=== PATIENT | female | born 1975 | race Caucasian/White ===

== ENCOUNTER 2017-07-17 19:09 | Inpatient (IN) | payer OTHER ==
[~2017-07-17] VITALS: Ht 177.8 cm; Wt 109.1 kg
[2017-07-17 19:43] VITALS: Ht 177.8 cm; Wt 109.1 kg
[2017-07-17] MEDS ORDERED: PREN1TAB79 PO (19:43)
[2017-07-17 19:44] VITALS: BP 128/76; PULSE 71; RESP 18
[2017-07-17 20:29] LABS: BASOPHILS % 0.1 % (0.0-2.0); EOSINOPHILS # 0.1 10^3/ul (0.0-0.5); EOSINOPHILS % 0.5 % (0.0-7.0); HEMATOCRIT 33.7 % (37.0-47.0); HEMOGLOBIN 11.8 g/dl (12.0-16.0); LYMPHOCYTES % 19.3 % (15.0-51.0); MEAN CORPUSCULAR HEMOGLOBIN 33.2 pg (29.0-33.0); MEAN CORPUSCULAR VOLUME 94.9 fl (82.0-101.0); MEAN PLATELET VOLUME 12.5 fl (7.4-10.4); MONOCYTE # 0.5 10^3/ul (0.3-0.9); MONOCYTES % 5.2 % (0.0-11.0); NEUTROPHIL # 7.6 10^3/ul (1.6-7.5); NEUTROPHILS % 74.4 % (39.0-77.0); PLATELET COUNT 148 10^3/UL (140-415); RED BLOOD COUNT 3.55 10^6/ul (4.20-5.40); RED CELL DISTRIBUTION WIDTH 12.3 % (11.5-14.5); WHITE BLOOD COUNT 10.2 10^3/ul (4.8-10.8)
[2017-07-17 20:33] LABS: ADD UMIC YES; UR ASCORBIC ACID NEGATIVE (NEGATIVE); UR BACTERIA FEW /HPF (NONE SEEN); UR BILIRUBIN (Dip) NEGATIVE (NEGATIVE); UR BLOOD (Dip) NEGATIVE (NEGATIVE); UR CLARITY SLIGHTLY CLOUDY (CLEAR); UR COLOR YELLOW (YELLOW); UR GLUCOSE (Dip) NEGATIVE (NEGATIVE); UR KETONES (Dip) NEGATIVE (NEGATIVE); UR LEUKOCYTE ESTERASE (Dip) 3+ Leu/ul (NEGATIVE); UR MUCUS FEW /HPF (NONE SEEN); UR NITRITE (Dip) NEGATIVE (NEGATIVE); UR RBC 1 /HPF (0-5); UR SPECIFIC GRAVITY (Dip) 1.019 (1.003-1.030); UR SQUAMOUS EPITHELIAL CELL FEW /HPF (FEW); UR TOTAL PROTEIN (Dip) NEGATIVE (NEGATIVE); UR UROBILINOGEN (Dip) NEGATIVE (NEGATIVE)
--- NOTE | 2017-07-17 20:34 | RADRPT ---
PROCEDURE: Obstetrical ultrasound for biophysical profile CLINICAL INDICATION: Biophysical profile. . TECHNIQUE: Obstetrical ultrasound of the uterus for biophysical profile. Transabdominal views are obtained. COMPARISON: None FINDINGS: Single intrauterine gestation. Presentation: Cephalic. Placenta: Posterior - fundal No evidence of placental abruption. No evidence of placenta previa. breathing movement = 2/2 tone = 2/2 motion = 2/2 LEVI = 2/2 LEVI = 14 cm heart rate: 130 beats per minute IMPRESSION: Single intrauterine gestation. Biophysical profile 03/19 RPTAT: AADD .Eulogio Elkins MD, MD Date Time Electronically viewed and signed by .Eulogio Elkins MD, on 07/17/2017 20:34 .B/
[2017-07-17 20:47] LABS: ALBUMIN 3.1 g/dl (3.3-4.9); ALBUMIN/GLOBULIN RATIO 0.96; BILIRUBIN,INDIRECT 0.3 mg/dl (0-1.1); BILIRUBIN,TOTAL 0.3 mg/dl (0.2-1.3); CALCIUM 9.1 mg/dl (8.4-10.2); CREATININE 0.63 mg/dl (0.44-1.00); POTASSIUM 3.9 mmol/L (3.5-5.1); TOTAL PROTEIN 6.3 g/dl (6.1-8.1); URIC ACID 4.1 mg/dl (3.1-7.9)
[2017-07-17] MEDS ORDERED: ACETAMINOPHEN 325 MG TAB PO PRN (21:00)
[2017-07-17 21:11] LABS: INR 0.88; PT RATIO 0.9
[2017-07-17 21:27] LABS: GLUCOSE 77 mg/dl (70-220)
[2017-07-17] MEDS: LACTATED RINGER'S 1,000 ML IV SCH (22:05)
--- NOTE | 2017-07-18 01:00 | HP ---
Date/Time of Note Date/Time of Note DATE: 07/18/17 TIME: 00:55 OB - History Hx of Present Free Text/Dictation 07/17/2017 : 2 Para: 0 Spontaneous : 0 Therapeutic : 0 Obstetrical Complications: Other (History of Ectopic , History of infertility, s/p IVF x 6. conceived afterr last IVF spontaneously. ) Other Concerns: 41-year-old with at 38 weeks and 2 days, history of infertility , history of ectopic , status post 6 rounds of IVF, conceived spontaneously. She was noted to have elevated blood pressure in the office visit 148/87 and was sent to triage for further evaluation rule out PIH. She reports she has headache with right sided blurred vision. Denies any epigastric pain or right upper quadrant pain. Denies any leaking of fluid, vaginal bleeding or decreased movement. Patient was scheduled for primary section at 39 weeks. Past Family/Social History * Past Medical, Surgical, Family and Obstetric Histories reviewed from chart. OB Admission Exam Vital Signs Vital Signs Vital Signs Date Time Temp Pulse Resp B/P Pulse Ox O2 Delivery O2 Flow Rate FiO2 07/17/17 19:44 97.8 71 18 128/76 Room Air Physical Exam HEENT: WNL Heart: Rhythm Normal Lungs: Clear Abdomen: WNL Extremities: Normal Cervical Dilatation: None Effacement: 0% Membranes: Intact Heart Rate: 130's Accelerations: Accelerations Present Decelerations: No Decelerations Varibility: Moderate Contractions on Admission: >10 Minutes Apart Intensity: Mild Last 72 hours Lab Results CBC & BMP 07/17/17 20:16 Liver Function Test 07/17/17 20:16 Alanine Aminotransferase (ALT/SGPT) 29 Albumin 3.1 L Alkaline Phosphatase 153 H Aspartate Amino Transf (AST/SGOT) 18 Direct Bilirubin 0.00 Total Protein 6.3 OB Assessment/Plan Other Assessment: IUP at 38 weeks and 2 days Conceived spontaneously after 6 rounds of IVF History of ectopic in prior Mildly elevated blood pressure during office visit noted. Complaint of headache and right-sided scotoma Blood pressures during monitoring in triage had been in normal range Urine negative for protein Patient will be kept overnight for observation for monitoring serially blood pressure as well as PIH panel Consider magnesium sulfate if any evidence of preeclampsia Follow-up the PIH panel Closely monitor If any evidence of gestational hypertension or preeclampsia consider delivery Primary OB was informed who agrees with above plan BRAD OSMAN MD Jul 18, 2017 01:00
--- NOTE | 2017-07-18 02:33 | TRIAGE ---
OB Triage Datetime Report Generated by CPN: 07/18/2017 02:33 Datetime: 07/18/2017 02:00 Labor Evaluation Frequency: none Monitor Mode: External Resting Tone Biggers: Relaxed Heart Rate FHR Baseline Rate: 135 Monitor Mode: External US FHR Baseline Changes: No Baseline Change Variability: Moderate 6-25 bpm Accelerations: 15X15 Decelerations: Variable Category: Category II Datetime: 07/18/2017 01:00 Labor Evaluation Frequency: none Monitor Mode: External Resting Tone Biggers: Relaxed Heart Rate FHR Baseline Rate: 130 Monitor Mode: External US FHR Baseline Changes: No Baseline Change Variability: Moderate 6-25 bpm Accelerations: 15X15 Decelerations: Variable Category: Category II Datetime: 07/18/2017 00:00 Labor Evaluation Frequency: none Monitor Mode: External Resting Tone Biggers: Relaxed Heart Rate FHR Baseline Rate: 130 Monitor Mode: External US FHR Baseline Changes: No Baseline Change Variability: Moderate 6-25 bpm Accelerations: 15X15 Decelerations: None Category: Category I Datetime: 07/17/2017 23:52 Stage of : Antepartum Temperature Route: Oral Datetime: 07/17/2017 23:00 Labor Evaluation Frequency: none Monitor Mode: External Resting Tone Biggers: Relaxed Heart Rate FHR Baseline Rate: 125 Monitor Mode: External US FHR Baseline Changes: No Baseline Change Variability: Moderate 6-25 bpm Accelerations: 15X15 Decelerations: None Category: Category I Pain Assessment Pain Scale: 6 Pain Presence: Constant Pain Type: Ache Pain Location: Head Pain Goal: 0 Pain Assessment Comments: pt refused tylenol for headache. Datetime: 07/17/2017 22:20 Assessment Type: Admission Assessment Vaginal Bleeding: None Maternal Assessment Level of Consciousness: Fully Conscious DTR's/Clonus: DTRs 2+; No Clonus Headache: Occipital; Localized Blurred Vision: No Respiratory Effort: Unlabored; Regular Rhythm; Equal Expansion Breath Sounds, Left: Clear and Equal Breath Sounds, Right: Clear and Equal Nausea/Vomiting: Denies RUQ Epigastric Pain: Denies Lower Extremities Edema: Bilateral Lower Extremities Degree: 2+ Upper Extremities Edema: Bilateral Upper Extremities Degree: 1+ Facial Edema: None Fall Risk Assessment History of Falling: (0) No Secondary Diagnosis: (0) No Ambulatory Aid: (0) Bedrest/Nurse Assist IV Therapy: (20) Yes Gait: (0) Normal/Bedrest/Immobile Mental Status: (0) Oriented to Own Ability Fall Score: 20 Fall Risk Score Definition: No Risk: No action required Labor Evaluation Frequency: none Heart Rate FHR Baseline Rate: 120 Variability: Moderate 6-25 bpm Accelerations: 15X15 Decelerations: None Category: Category I Pain Assessment Pain Scale: 6 Pain Presence: Constant Pain Type: Ache Pain Location: Head Pain Goal: 0 Vaginal Exam Membrane Status: Intact Datetime: 07/17/2017 22:09 Stage of : OB Triage Stage of : Antepartum Labor Evaluation Frequency: None Monitor Mode: External Resting Tone Biggers: Relaxed Heart Rate FHR Baseline Rate: 130 Monitor Mode: External US FHR Baseline Changes: No Baseline Change Variability: Moderate 6-25 bpm Accelerations: 15X15 Decelerations: None Category: Category I Datetime: 07/17/2017 22:05 Stage of : OB Triage Datetime: 07/17/2017 22:00 Stage of : OB Triage Labor Evaluation Frequency: Irregular Monitor Mode: External Duration (sec)2399: 40-80 Quality: Mild Pattern: Normal: <= 5 Contractions in 10 Minutes Resting Tone Biggers: Relaxed Heart Rate FHR Baseline Rate: 130 Monitor Mode: External US FHR Baseline Changes: No Baseline Change Variability: Moderate 6-25 bpm Accelerations: 15X15 Decelerations: Variable Category: Category II Datetime: 07/17/2017 21:58 Stage of : OB Triage Datetime: 07/17/2017 21:00 Stage of : OB Triage Labor Evaluation Frequency: Occasional Monitor Mode: External Duration (sec)2399: 40-50 Quality: Mild Pattern: Normal: <= 5 Contractions in 10 Minutes Resting Tone Biggers: Relaxed Heart Rate FHR Baseline Rate: 130 Monitor Mode: External US FHR Baseline Changes: No Baseline Change Variability: Moderate 6-25 bpm Accelerations: 15X15 Decelerations: Variable Category: Category II Datetime: 07/17/2017 20:29 Stage of : OB Triage Datetime: 07/17/2017 20:00 Stage of : OB Triage Labor Evaluation Frequency: x3 Monitor Mode: External Duration (sec)2399: 60-80 Quality: Mild Pattern: Normal: <= 5 Contractions in 10 Minutes Resting Tone Biggers: Relaxed Heart Rate FHR Baseline Rate: 130 Monitor Mode: External US Variability: Moderate 6-25 bpm Accelerations: 15X15 Decelerations: None Category: Category I Datetime: 07/17/2017 19:59 Stage of : OB Triage Datetime: 07/17/2017 19:53 Stage of : OB Triage Datetime: 07/17/2017 19:14 Stage of : OB Triage Assessment Type: Triage Maternal Assessment Level of Consciousness: Fully Conscious DTR's/Clonus: DTRs 2+; No Clonus Headache: Temporal; Bilateral Blurred Vision: Yes (Annotations: Denies blurred vision but reports some spots in front of right e ye on way here) Respiratory Effort: Unlabored; Regular Rhythm; Equal Expansion Breath Sounds, Left: Clear and Equal Breath Sounds, Right: Clear and Equal Nausea/Vomiting: Present (Annotations: Nausea only) RUQ Epigastric Pain: Denies Lower Extremities Edema: Bilateral Lower Extremities Degree: Pitting Upper Extremities Edema: None Degree: None Facial Edema: None Temperature Route: Oral Fall Risk Assessment History of Falling: (0) No Secondary Diagnosis: (0) No Ambulatory Aid: (0) Bedrest/Nurse Assist IV Therapy: (0) No Gait: (0) Normal/Bedrest/Immobile Mental Status: (0) Oriented to Own Ability Fall Score: 0 Fall Risk Score Definition: No Risk: No action required Pain Assessment Pain Scale: 7 Pain Presence: Constant Pain Type: Ache Pain Location: Head Datetime: 07/17/2017 19:12 Contraction Comments: TOCO APPLIED Comments: US APPLIED Datetime: 07/17/2017 19:11 Time of Arrival: 07/17/2017 19:00 EGA: 38.2 Arrived By: Ambulatory Arrived From: Office Chief Complaint: BARAH[place], nausea Movement: Present Contractions: Denies/Absent Rupture of Membranes: Denies Vaginal Bleeding: None Vaginal Discharge: Denies Recent Sexual Intercouse: Denies Abdominal Trauma: Not Applicable Patient Complaints: Back Pain; Headache; Nausea Additional Patient Complaints: Sent from MD office for elevated BP _ BARAHONA Time Provider Notified: 07/17/2017 19:59 Provider Notified: Initial Plan: PIH panel, U/S for BPP/LEVI
[2017-07-18] MEDS: LACTATED RINGER'S 1,000 ML IV SCH ×3 (05:25→19:20)
[2017-07-18] MEDS ORDERED: OXYTOCIN 30 UNITS/LR 500 ML BAG IV ONE (07:00)
[2017-07-18] MEDS ORDERED: EPHEDrine SULFATE 50 MG/5 ML SYG ONE (07:00)
--- NOTE | 2017-07-18 07:21 | QN ---
Documentation Comment patient seen and evaluated no complaints no headache, n/v, sob, visual changes, epigastric pain vs stable afebrile abdom gravid, nt, no epigastric tenderness extremity plus 1 pitting edema b/l a/ iup at 38 wks ga, r/o preeclampsia p/ f/u 24 hour urine collection consider delivery if elevated blood pressure is observed. RENETTA FELICIANO MD Jul 18, 2017 07:21
[2017-07-18] MEDS ORDERED: PRENATAL VITAMIN PO SCH (09:00)
[2017-07-18] MEDS ORDERED: MAGNESIUM SULFATE 20 GM/500 ML 500 ML IV ONE (09:54)
[2017-07-18] MEDS ORDERED: MAGNESIUM SULFATE 4 GM/100 ML 100 ML ONE (09:54)
[2017-07-18] MEDS ORDERED: MAGNESIUM SULFATE 4 GM/100 ML 100 ML IV SCH (10:00)
[2017-07-18] MEDS ORDERED: CA GLUCONATE (GM) 10% 10ML INJ IV PRN (10:00)
[2017-07-18] MEDS: MAGNESIUM SULFATE 20 GM/500 ML 500 ML IV SCH ×2 (10:05→20:30)
[2017-07-18 11:58] LABS: BASOPHILS % 0.1 % (0.0-2.0); EOSINOPHILS % 0.4 % (0.0-7.0); HEMOGLOBIN 12.2 g/dl (12.0-16.0); LYMPHOCYTES # 1.9 10^3/ul (0.8-2.9); LYMPHOCYTES % 21.4 % (15.0-51.0); MEAN CORPUSCULAR HEMOGLOBIN 33.5 pg (29.0-33.0); MEAN CORPUSCULAR HGB CONC 34.9 g/dl (32.0-37.0); MEAN CORPUSCULAR VOLUME 96.2 fl (82.0-101.0); MEAN PLATELET VOLUME 12.7 fl (7.4-10.4); MONOCYTE # 0.5 10^3/ul (0.3-0.9); MONOCYTES % 5.7 % (0.0-11.0); NEUTROPHIL # 6.5 10^3/ul (1.6-7.5); NEUTROPHILS % 71.8 % (39.0-77.0); PLATELET COUNT 154 10^3/UL (140-415); RED BLOOD COUNT 3.64 10^6/ul (4.20-5.40); RED CELL DISTRIBUTION WIDTH 12.5 % (11.5-14.5)
[2017-07-18 12:23] LABS: ALBUMIN 3.1 g/dl (3.3-4.9); BILIRUBIN,INDIRECT 0.3 mg/dl (0-1.1); BILIRUBIN,TOTAL 0.3 mg/dl (0.2-1.3); TOTAL PROTEIN 5.9 g/dl (6.1-8.1); URIC ACID 4.3 mg/dl (3.1-7.9)
[2017-07-18 12:25] LABS: INR 0.85; PROTIME 11.7 Sec (11.9-14.9); PT RATIO 0.9
[2017-07-18 12:26] LABS: PARTIAL THROMBOPLASTIN TIME 26.5 Sec (25.0-35.0)
[2017-07-18 13:38] LABS: FIBRIN SPLIT PRODUCT <10 ug/ml (<10)
[2017-07-18] MEDS ORDERED: CEFAZOLIN 2 GM/50 ML (PMX) 50 ML IVPB ONE (16:05)
[2017-07-18] MEDS ORDERED: CEFAZOLIN 2 GM/50 ML (PMX) 50 ML IVPB SCH (16:30)
[2017-07-18] MEDS ORDERED: CARBOPROST 250 MCG INJ IM PRN ×2 (16:30→19:30)
[2017-07-18] MEDS ORDERED: MISOPROSTOL 200 MCG TAB PR PRN ×2 (16:30→19:30)
[2017-07-18] MEDS ORDERED: METHYLERGONOVINE 0.2 MG INJ IM PRN ×2 (16:30→19:30)
[2017-07-18] MEDS ORDERED: OXYTOCIN 30 UNITS/LR 500 ML IV PRN ×2 (16:30→19:30)
--- NOTE | 2017-07-18 18:12 | QN ---
Documentation Comment patient blood pressure elevated this morning with severe headache. patient desire elective CD maternal request a/ 41 yo iup at 39 wks ga, preeclampsia with severe features, desires elective CD p/ consent for primary cd r/b/a explained RENETTA FELICIANO MD Jul 18, 2017 18:12
[2017-07-18] MEDS ORDERED: morphine SULFATE/PF (10 MG/10 ML) INJ ONE (18:15)
[2017-07-18] MEDS ORDERED: PHENYLephrine (100 MCG/ML) 5ML SYG ONE (18:57)
--- NOTE | 2017-07-18 19:20 | OPPN ---
Date/Time of Note Date/Time of Note DATE: 07/18/17 TIME: 19:16 Operative Report Planned Procedure Free Text/Dictation a viable female Procedure date Jul 18, 2017 Procedure(s) primary low transverse CD Performed by see signature line [employer] Dr. Diaz Pre-procedure diagnosis iup at term, preeclampsia with severe feature, desires elective CD (maternal request), ama Anesthesia Type: spinal Post-Procedure Post-procedure diagnosis same Findings Live Baby [female], Apgars [9] and [9], weight [8lb 2 oz], position [vtx], [] presentation [x1 ]cord.around neck Estimated Blood Loss: 500 - 600 mls Specimen(s) none Grafts/Implant(s) none Complication(s) none RENETTA FELICIANO MD Jul 18, 2017 19:20
[2017-07-18] MEDS: CEFAZOLIN 2 GM/50 ML (PMX) 50 ML IV SCH (19:30)
[2017-07-18] MEDS ORDERED: LANOLIN 7 GM TUBE TOP PRN (19:30)
[2017-07-18] MEDS ORDERED: OXYCODONE/ACETAMINOPHEN (5/325) TAB PO PRN (19:30)
[2017-07-18] MEDS ORDERED: OXYTOCIN 30 UNITS/LR 500 ML IV ONE (20:30)
[2017-07-18] MEDS ORDERED: HYDROmorphONE 0.5 MG/0.5 ML SYG IV PRN ×2 (21:30)
[2017-07-18] MEDS ORDERED: METOCLOPRAMIDE 10 MG INJ IV PRN (21:30)
[2017-07-18] MEDS ORDERED: FENTAnyl 50 MCG/ML VIAL IV PRN ×2 (21:30)
[2017-07-18] MEDS ORDERED: KETOROLAC 30 MG INJ IV PRN (21:30)
[2017-07-18] MEDS ORDERED: NALOXONE (0.4 MG/ML) INJ IV PRN (21:30)
[2017-07-18] MEDS ORDERED: HYDROmorphONE (0.2 MG/ML) 10ML SYG IV PRN ×2 (21:30)
[2017-07-18] MEDS ORDERED: ONDANSETRON 4 MG INJ IV PRN ×2 (21:30)
[2017-07-18] MEDS ORDERED: DIPHENHYDRAMINE 50 MG INJ IV PRN ×2 (21:30)
[2017-07-18] MEDS ORDERED: ONDANSETRON 4 MG INJ ONE (21:37)
[2017-07-18] MEDS ORDERED: KETOROLAC 30 MG INJ ONE (21:38)
[2017-07-18 22:30] VITALS: BP 120/70; PULSE 93; RESP 18
[2017-07-18 23:30] VITALS: BP 126/72; PULSE 79; RESP 18
[2017-07-19] VITALS (21 sets, daily range): BP systolic 114–139; BP diastolic 60–75; PULSE 72–87; RESP 0–19
[2017-07-19] MEDS: CEFAZOLIN 2 GM/50 ML (PMX) 50 ML IV SCH ×3 (05:21→19:54)
[2017-07-19] MEDS: LACTATED RINGER'S 1,000 ML IV SCH ×2 (05:22→21:20)
[2017-07-19] MEDS: MAGNESIUM SULFATE 20 GM/500 ML 500 ML IV SCH ×2 (05:43→16:26)
[2017-07-19] MEDS: IBUPROFEN 600 MG TAB PO SCH ×5 (05:44→23:35)
--- NOTE | 2017-07-19 09:03 | QN ---
Documentation Comment PoD#1 is stable afebrile tolerates diet NO VB +flatus +Adequate urine No sign of Depression VS stable Gen NAD Abd soft NT ND Dressing to be removed Genitalaia No blood at perinium --->discharge plan today BELKIS BROWN M.D. Jul 19, 2017 09:03
[2017-07-19 11:29] LABS: BASOPHILS % 0.1 % (0.0-2.0); EOSINOPHILS % 0.2 % (0.0-7.0); HEMATOCRIT 31.7 % (37.0-47.0); LYMPHOCYTES # 1.1 10^3/ul (0.8-2.9); LYMPHOCYTES % 12.3 % (15.0-51.0); MEAN CORPUSCULAR HEMOGLOBIN 32.9 pg (29.0-33.0); MEAN CORPUSCULAR HGB CONC 34.7 g/dl (32.0-37.0); MEAN CORPUSCULAR VOLUME 94.9 fl (82.0-101.0); MEAN PLATELET VOLUME 12.1 fl (7.4-10.4); MONOCYTE # 0.4 10^3/ul (0.3-0.9); MONOCYTES % 4.5 % (0.0-11.0); NEUTROPHIL # 7.5 10^3/ul (1.6-7.5); NEUTROPHILS % 82.4 % (39.0-77.0); PLATELET COUNT 143 10^3/UL (140-415); RED BLOOD COUNT 3.34 10^6/ul (4.20-5.40); RED CELL DISTRIBUTION WIDTH 12.4 % (11.5-14.5); WHITE BLOOD COUNT 9.1 10^3/ul (4.8-10.8)
--- NOTE | 2017-07-19 11:45 | OPR ---
DATE OF OPERATION: 07/18/2017 PRIMARY DIAGNOSES: Intrauterine at 38 weeks gestational age, advanced maternal age, preec lampsia with severe features, desires elective delivery, maternal request POSTOPERATIVE DIAGNOSES: Intrauterine at 38 weeks gestational age, advanced maternal age, preeclampsia with severe features, desires elective delivery, maternal request. PROCEDURE: Primary low transverse delivery via Pfannenstiel incision. SURGEON: Gregorio Dey MD. CONTENT PUBLISHER: Dr. Diaz ANESTHESIA: Spinal. COMPLICATIONS: None. ESTIMATED BLOOD LOSS: 500 mL. FINDINGS: A viable female in cephalic presentation, x1 cord reducible around the neck, Apgars 9 and 9 respectively at one and five minutes, weight 8 pounds 2 ounces. DESCRIPTION OF PROCEDURE: After explaining the risks, benefits and alternatives, the patient and co nsent signed in chart, the patient was taken to the operating room where spinal anesthesia was found to be adequate. She was then prepared and draped in normal sterile fashion in dorsal supine positi on with a leftward tilt. A Pfannenstiel skin incision was then made with a scalpel and carried to t he underlying layer of the fascia. The fascia was incised in the midline and the incision was exten ded laterally with Hart scissors. The superior aspect of the fascial incision was grasped with curv ed clamps, elevated and the underlying rectus muscles dissected off bluntly. Attention was then tur opal to the inferior aspect of the incision which in similar fashion was grasped, tented up with curv ed clamps and the rectus muscles dissected off bluntly. The rectus muscle was in midline, peritoneum identified, tented up and entered sharply with Metzenbaum scissors. The peritoneal inci kristina was extended superiorly with good visualization of the bladder. The bladder blade was then ins erted and the vesicouterine peritoneum identified, grasped with pickups and entered sharply with Met zenbaum scissors. This incision was extended laterally and a bladder flap created digitally. The b ladder blade was then reinserted and the lower uterine segment incised in transverse fashion with a scalpel. The uterine incision was extended laterally. The bladder blade was removed and using the Kiwi vacuum, the head was delivered without any complications. The nose and the mouth were suctione d and cord clamped and cut. was handed off to awaiting clip baker. The placenta was then removed. The uterus was and cleared of all clots and debris. The uterine incision was repair ed with 1-0 chromic in a running locked fashion. A second layer of the same suture was used for imb rication and obtained excellent hemostasis. The uterus was returned to the abdomen. The gutters we re cleared of all clots. The peritoneum and rectus abdominis muscles were reapproximated with 3-0 V icryl in interrupted fashion. The fascia was reapproximated with 0 Vicryl in a running fashion. Th e subcutaneous tissue was reapproximated with 2-0 plain gut in a running fashion. The skin was clos ed with absorbable dre. The patient tolerated procedure well. Sponge, lap and needle counts co rrect x2. The patient was taken to recovery room in stable condition. Dictated By: GREGORIO TAYLOR/SHAUN Conf#: [id number] DID#: [id number] CC: Dr. Diaz;*EndCC*
[2017-07-19] MEDS ORDERED: VITAMIN A & D 5 GM OINT PACKET TOP ONE (20:24)
[2017-07-19] MEDS: OXYCODONE/ACETAMINOPHEN (5/325) TAB PO PRN (22:12)
[2017-07-20 04:15] VITALS: BP 110/67; RESP 18
[2017-07-20] MEDS: IBUPROFEN 600 MG TAB PO SCH ×4 (05:32→23:41)
[2017-07-20 08:44] VITALS: BP 121/62; PULSE 68; RESP 14
--- NOTE | 2017-07-20 12:27 | QN ---
Documentation Comment PoD#2 is stable afebrile tolerates diet NO VB +flatus +Adequate urine No sign of Depression VS stable Gen NAD Abd soft NT ND incision intact Genitalaia No blood at perinium --->discharge plan today BELKIS BROWN M.D. Jul 20, 2017 12:27
--- NOTE | 2017-07-20 12:29 | DS ---
Date/Time of Note Date/Time of Note DATE: 07/20/17 TIME: 12:28 Discharge Summary Admission/Discharge Info Admit Date/Time Jul 17, 2017 at 20:29 Discharge Date/Time Discharge Diagnosis post c/section Patient Condition: Good Procedures c/section Hospital Course uneventful Home Meds Reported Medications Vit W-Ca,Fe,FA(<1 mg) ( Vitamins) 1 Each Tablet, 1 EACH PO DAILY, TAB 07/17/17 Primary Care Provider Care Physician No Primary Pending Labs Laboratory Tests Test 07/19/17 13:04 07/19/17 17:51 Magnesium Level 4.6mg/dl (1.7-2.5) 4.5mg/dl (1.7-2.5) BELKIS BROWN M.D. Jul 20, 2017 12:29
[2017-07-20 16:02] VITALS: BP 119/72; PULSE 77; RESP 16
[2017-07-20 19:40] VITALS: BP 114/66; RESP 18
[2017-07-21] MEDS: OXYCODONE/ACETAMINOPHEN (5/325) TAB PO PRN (03:42)
[2017-07-21 04:10] VITALS: BP 125/70; PULSE 64; RESP 18
[2017-07-21] MEDS: IBUPROFEN 600 MG TAB PO SCH ×2 (06:13→12:19)
[2017-07-21 07:30] VITALS: BP 111/74; PULSE 60; RESP 19
== END 2017-07-21 16:33 | disposition home or self-care (01) | DRG 766 ==
LOC: OBT 19:09 → L-D 19:10 → OBT 20:29 → L-D 20:29 → PP1 07-18 22:54
PROVIDERS: ADMIT Obstetrics & Gynecology; ATTEND Obstetrics & Gynecology
PROC: 0UL70ZZ Occlusion of Bilateral Fallopian Tubes, Open Approach (ICD-10-PCS; 2017-07-18)
PROC: 10D00Z1 Extraction of Products of Conception, Low, Open Approach (ICD-10-PCS; principal; 2017-07-18 18:00)
DX: O99.214 Obesity complicating childbirth (principal); E66.01 Morbid (severe) obesity due to excess calories; Z68.34 Body mass index [BMI] 34.0-34.9, adult; Z30.2 Encounter for sterilization; O14.14 Severe pre-eclampsia complicating childbirth; Z3A.38 38 weeks gestation of pregnancy; Z37.0 Single live birth
CPT/HCPCS: 76818; 80053; 80076; 81001; 82947; 83735; 84560; 85025; 85362; 85384; 85610; 85730; 86592; 86850; 86900; 86901; 87340; 94760; 99464; G0463; J0690; J1885; J2274; J2370; J2405; J2590; J3475; J7120